=== PATIENT | male | born 1970 | race African-American/Black ===

== ENCOUNTER 2020-06-05 09:05 | Emergency (ER) | payer MEDICAID ==
[~2020-06-05] VITALS: Ht 177.8 cm; Wt 71.2 kg
[2020-06-05] MEDS ORDERED: LISI40TA13 PO (09:32)
--- NOTE | 2020-06-05 09:32 | NUR ---
Pt is in room #2b. Dr Perdomo evaluated the pt.
[2020-06-05] MEDS ORDERED: LISINOPRIL 10 MG TABLET PO ONE ×2 (09:45→11:00)
[2020-06-05] MEDS ORDERED: LISINOPRIL 10 MG TABLET ONE ×2 (09:54→11:06)
[2020-06-05 10:15] LABS: BASOPHILS % (AUTO) 0.4 % (0.0-2.0); EOSINOPHILS % (AUTO) 0.4 % (0.0-7.0); HEMATOCRIT 39.3 % (36.7-47.1); HEMOGLOBIN 13.3 g/dL (12.5-16.3); LYMPHOCYTES # (AUTO) 1.7 K/uL (20.0-40.0); LYMPHOCYTES % (AUTO) 25.5 % (20.5-51.5); MEAN CORPUSCULAR HEMOGLOBIN 30.8 uug (23.8-33.4); MEAN CORPUSCULAR HGB CONC 34 g/dL (32.5-36.3); MEAN CORPUSCULAR VOLUME 91.3 fL (73.0-96.2); MONOCYTES # (AUTO) 0.6 K/uL (2.0-10.0); MONOCYTES % (AUTO) 8.4 % (0.0-11.0); NEUTROPHILS # (AUTO) 4.4 K/uL (1.8-8.9); NEUTROPHILS % (AUTO) 65.3 % (38.5-71.5); PLATELET COUNT (AUTO) 154 K/uL (152-348); WHITE BLOOD COUNT (AUTO) 6.7 K/uL (3.6-10.2)
[2020-06-05 10:20] LABS: CREATININE 1.2 mg/dL (0.6-1.3); POTASSIUM 3.8 mmol/L (3.5-5.1)
[2020-06-05 10:24] LABS: BILIRUBIN,DIRECT 0.1 mg/dL (0.0-0.2); BILIRUBIN,TOTAL 0.5 mg/dL (0.2-1.0)
--- NOTE | 2020-06-05 12:56 | NUR ---
PT WAS D/C'd TO HOME. D/C INSTRUCTIONS GIVEN TO THE PT BY DR US.
[2020-06-05 12:57] VITALS: BP 158/98
== END 2020-06-05 12:57 | disposition home or self-care (01) ==
LOC: ER 09:05
DX: R51.9 Headache, unspecified (principal); I10 Essential (primary) hypertension; Z76.0 Encounter for issue of repeat prescription; F17.290 Nicotine dependence, other tobacco product, uncomplicated
CPT/HCPCS: 36415; 85025; A4663

== ENCOUNTER 2020-08-02 23:26 | Emergency (ER) | payer MEDICAID, OTHER ==
[~2020-08-02] VITALS: Ht 175.3 cm; Wt 69.4 kg
[~2020-08-02 23:26] MED LIST: LISI40TA13 PO
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
[2020-08-03] MEDS ORDERED: KETOROLAC TROMETHAMINE 60 MG INJ IM ONE ×2 (00:45)
[2020-08-03 02:13] VITALS: BP 126/81
[2020-08-03] MEDS ORDERED: IBUP-1955 PO (02:14)
--- NOTE | 2020-08-03 02:23 | NUR ---
Patient discharged to home in stable condition. Written and verbal after care instructions given. Patient verbalizes understanding of instructions. Stressed follow up or return to ER for worsening s/s. Steady gait. Cranial Nerves 1-12 intact. Belongings with patient.
== END 2020-08-03 02:23 | disposition home or self-care (01) ==
LOC: ER 23:28
DX: Z04.1 Encounter for examination and observation following transport accident (principal); M79.641 Pain in right hand; M54.9 Dorsalgia, unspecified; R51.9 Headache, unspecified; F17.290 Nicotine dependence, other tobacco product, uncomplicated; Z59.0 Homelessness
CPT/HCPCS: 70450; 73130; 96372; 99284; J1885; A4663